=== PATIENT | male | born 1985 | race Caucasian/White ===

== ENCOUNTER 2018-12-08 05:09 | Emergency (ER) | payer MEDICAID, SELFPAY ==
[~2018-12-08] VITALS: Ht 175.3 cm; Wt 86.4 kg
[2018-12-08] MEDS ORDERED: NORC1TAB7 PO (06:43)
[2018-12-08 07:27] VITALS: BP 116/79
--- NOTE | 2018-12-08 08:39 | REP ---
Bilateral wrist series: Eight views. History: Injury. Findings: Four views of the left wrist show overall normal mineralization. There is no evidence of acute fracture or subluxation. Four views of the right wrist demonstrate normal bones, joints, and soft tissues as well. No fractures seen. Impression: No fracture noted. Electronically Signed by Lauro Ramirez MD 12/08/2018 08:31 A
--- NOTE | 2018-12-08 08:40 | REP ---
Left elbow series: Four views. History: Injury. Findings: Four views of the left elbow demonstrate a slightly impacted nondisplaced fracture of the proximal radial head. No proximal ulnar or distal humeral fracture is appreciated. There is positive fat pad sign indicating hemarthrosis on the lateral radiograph. Impression: Slightly impacted proximal radial fracture with hemarthrosis. Electronically Signed by Lauro Ramirez MD 12/08/2018 08:32 A
== END 2018-12-08 07:33 | disposition home or self-care (01) ==
LOC: M ED 05:09
DX: S63.91XA Sprain of unspecified part of right wrist and hand, initial encounter (principal); S63.92XA Sprain of unspecified part of left wrist and hand, initial encounter; S52.182A Other fracture of upper end of left radius, initial encounter for closed fracture; S50.312A Abrasion of left elbow, initial encounter; V18.9XXA Unspecified pedal cyclist injured in noncollision transport accident in traffic accident, initial encounter; Y92.410 Unspecified street and highway as the place of occurrence of the external cause; Z88.1 Allergy status to other antibiotic agents; Z88.2 Allergy status to sulfonamides